=== PATIENT | female | born 1995 | race Caucasian/White ===

== ENCOUNTER → 2018-11-30 08:27 | Outpatient (CLI) | payer OTHER | END | disposition home or self-care (01) | LOC: D.US 08:00 | DX: E06.3 Autoimmune thyroiditis (principal) ==

== ENCOUNTER → 2020-12-11 08:06 | Outpatient (CLI) | payer OTHER | END | disposition home or self-care (01) | LOC: D.US 08:06 | PROVIDERS: ATTEND Emergency Medicine | DX: E03.9 Hypothyroidism, unspecified (principal) ==